=== PATIENT | female | born 1995 | race Caucasian/White ===

== ENCOUNTER 2016-07-07 07:59 | Emergency (ER) | payer OTHER ==
[~2016-07-07] VITALS: Ht 152.4 cm; Wt 87.1 kg
[~2016-07-07 07:59] MED LIST: FLAGYL500 MG PO; IBUPROFEN800 MG PO; MOTRIN800 MG PO; PRENA1 CHEW TA1.4 MG PO; ZANTAC150 MG PO; ZOFRAN ODT8 MG PO
[2016-07-07 09:05] LABS: ADD MIUA? YES; BILIRUBIN NEGATIVE; BLOOD NEGATIVE; COLOR YELLOW ((YELLOW)); GLUCOSE (STRIP) NEGATIVE; KETONES NEGATIVE; LEUKOCYTES NEGATIVE; NITRITE NEGATIVE; PROTEIN (STRIP) NEGATIVE; SPECIFIC GRAVITY 1.023 (1.000-1.030); UROBILINOGEN 0.2 MG/DL (0.2-1.0)
[2016-07-07 09:05] LABS: HEMATOCRIT 40.5 % (36.0-46.0); MCH 28.8 PG (29.0-34.0); MCHC 34.8 G/DL (30.0-36.0); MCV 82.8 FL (83-99); MEAN PLAT.VOLUME 9.2 uM^3 (9.5-12.4); PLATELET COUNT 342 K/uL (156-360); RBC DIS.WIDTH-CV 12.8 % (11.8-14.6); RED BLOOD COUNT 4.89 M/uL (3.80-5.20); WHITE BLOOD COUNT 14.4 K/uL (4.1-10.2)
[2016-07-07 09:08] LABS: BACTERIA RARE /HPF; EPITHELIAL CELLS RARE /HPF; MUCUS TRACE /LPF; RED BLOOD CELLS 0-5 /HPF (0-5); WHITE BLOOD CELLS 0-5 /HPF (0-5)
[2016-07-07 09:14] LABS: CHLORIDE 108 mEq/L (99-109); POTASSIUM 3.8 mEq/L (3.7-5.4); SODIUM 140 mEq/L (136-147)
[2016-07-07 09:16] LABS: GLUCOSE 103 mg/dL (70-99)
[2016-07-07 09:17] LABS: ANION GAP 11 MEQ/L (2-14)
[2016-07-07 09:20] LABS: GFR ESTIMATE (CALCULATED) > 59 mL/min/
[2016-07-07 09:21] LABS: UREA NITROGEN (BUN) 16 mg/dL (9-23)
[2016-07-07] MEDS ORDERED: ZOFRAN ODT4 MG PO (09:35)
[2016-07-07 09:43] VITALS: BP 101/66
== END 2016-07-07 09:44 | disposition home or self-care (01) ==
LOC: EME 07:59
PROVIDERS: Nurse Practitioner Family
DX: R11.2 Nausea with vomiting, unspecified (principal); Z88.7 Allergy status to serum and vaccine
CPT/HCPCS: 80048; 81003; 85027; 99281; 99285; J2405; J7030

== ENCOUNTER 2016-11-09 11:15 | Inpatient (IN) | payer OTHER ==
[~2016-11-09] VITALS: Ht 152.4 cm; Wt 85.3 kg
[~2016-11-09 11:15] MED LIST changes: +ZOFRAN ODT4 MG PO
[2016-11-09 11:47] LABS: ADD MIUA? YES; BILIRUBIN NEGATIVE; BLOOD NEGATIVE; COLOR STRAW ((YELLOW)); GLUCOSE (STRIP) NEGATIVE; KETONES NEGATIVE; LEUKOCYTES TRACE; NITRITE NEGATIVE; PROTEIN (STRIP) NEGATIVE; SPECIFIC GRAVITY 1.009 (1.000-1.030); UROBILINOGEN 0.2 MG/DL (0.2-1.0)
[2016-11-09 11:49] LABS: BACTERIA RARE /HPF; EPITHELIAL CELLS RARE /HPF; MUCUS NONE SEEN /LPF; RED BLOOD CELLS 0-5 /HPF (0-5); WHITE BLOOD CELLS 0-5 /HPF (0-5)
[2016-11-09 12:06] LABS: ADD MEDTOX COMMENT Y; AMPHETAMINE NEGATIVE (500 ng/mL); BARBITURATES NEGATIVE (200 ng/mL); BENZODIAZEPINES NEGATIVE (150 ng/mL); COCAINE NEGATIVE (150 ng/mL); INTERNAL CONTROLS VALID? YES; METHADONE NEGATIVE (200 ng/mL); METHAMPHETAMINE NEGATIVE (500 ng/mL); OPIATES (MORPHINE) NEGATIVE (100 ng/mL); OXYCODONE NEGATIVE (100 ng/mL); PHENCYCLIDINE NEGATIVE (25 ng/mL); PROPOXYPHENE NEGATIVE (300 ng/mL); THC CANNABINOIDS PRESUMPTIVE POSITIVE (50 ng/mL); TRICYCLIC ANTIDEPRESSANTS NEGATIVE (300 ng/mL)
[2016-11-09 12:10] LABS: HEMATOCRIT 39.6 % (36.0-46.0); MCH 29.4 PG (29.0-34.0); MCHC 33.8 G/DL (30.0-36.0); MCV 86.8 FL (83-99); MEAN PLAT.VOLUME 9.1 uM^3 (9.5-12.4); PLATELET COUNT 338 K/uL (156-360); RBC DIS.WIDTH-CV 12.5 % (11.8-14.6); RBC DIS.WIDTH-SD 39.8 % (39-53); RED BLOOD COUNT 4.56 M/uL (3.80-5.20); WHITE BLOOD COUNT 15.9 K/uL (4.1-10.2)
[2016-11-09 12:24] LABS: CHLORIDE 113 mEq/L (99-109); POTASSIUM 3.6 mEq/L (3.7-5.4); SODIUM 143 mEq/L (136-147)
[2016-11-09 12:26] LABS: GLUCOSE 105 mg/dL (70-99)
[2016-11-09 12:27] LABS: ANION GAP 11 MEQ/L (2-14)
[2016-11-09 12:28] LABS: TOTAL BILIRUBIN 0.4 mg/dL (0.0-1.0)
[2016-11-09 12:29] LABS: SERUM ETHYL ALCOHOL < 10 mg/dL
[2016-11-09 12:30] LABS: GFR ESTIMATE (CALCULATED) > 59 mL/min/
[2016-11-09 12:31] LABS: ALKALINE PHOSPHATASE 63 IU/L (3-129)
[2016-11-09 12:32] LABS: UREA NITROGEN (BUN) 15 mg/dL (9-23)
[2016-11-09 12:33] LABS: SALICYLATE < 5.0 MG/DL (15-30)
[2016-11-09 12:40] LABS: QUANTITATIVE HCG < 4.0 MIU/ML
[2016-11-09] MEDS ORDERED: ESCITALOPRAM OX10 MG PO (15:57)
[2016-11-09] MEDS ORDERED: SPRINTEC1 EACH PO (15:57)
[2016-11-09 18:28] VITALS: BP 128/94
[2016-11-09 18:38] VITALS: BP 128/94
[2016-11-10 08:11] VITALS: BP 130/71
[2016-11-10 15:26] VITALS: BP 120/72
[2016-11-11 07:27] VITALS: BP 105/61
[2016-11-11 15:24] VITALS: BP 117/59
[2016-11-12 07:50] VITALS: BP 127/63
[2016-11-12 16:13] VITALS: BP 150/95
[2016-11-13 07:31] VITALS: BP 117/56
[2016-11-13 15:19] VITALS: BP 124/70
[2016-11-14 07:57] VITALS: BP 113/72
[2016-11-14] MEDS ORDERED: PRAZOSIN HCL2 MG PO (09:13)
[2016-11-14] MEDS ORDERED: SERTRALINE HCL100 MG PO (09:13)
== END 2016-11-14 11:35 | disposition home or self-care (01) | DRG 885 ==
LOC: EME 11:15 → EDOF 15:05 → 1WEST 15:05
PROVIDERS: Emergency Medicine
DX: F33.2 Major depressive disorder, recurrent severe without psychotic features (principal); F12.10 Cannabis abuse, uncomplicated; F43.12 Post-traumatic stress disorder, chronic; T43.221D Poisoning by selective serotonin reuptake inhibitors, accidental (unintentional), subsequent encounter
CPT/HCPCS: 80053; 81003; 84702; 84999; 85027; 90837; 97150 GO; 97165 GO; 99281; 99284; G0480; Q0177

== ENCOUNTER 2017-07-06 18:12 | Outpatient (CLI) | payer OTHER ==
[~2017-07-06] VITALS: Ht 152.4 cm; Wt 83.0 kg
[~2017-07-06 18:12] MED LIST changes: +ESCITALOPRAM OX10 MG PO; +PRAZOSIN HCL2 MG PO; +SERTRALINE HCL100 MG PO; +SPRINTEC1 EACH PO
[2017-07-06 18:33] VITALS: BP 120/75
[2017-07-06 19:53] LABS: APPEARANCE CLEAR ((CLEAR)); BILIRUBIN NEGATIVE; BLOOD NEGATIVE; COLOR STRAW ((YELLOW)); GLUCOSE (STRIP) NEGATIVE; KETONES 5; LEUKOCYTES NEGATIVE; NITRITE NEGATIVE; PROTEIN (STRIP) NEGATIVE; SPECIFIC GRAVITY 1.009 (1.000-1.030); UCUL ADDED? NO; UROBILINOGEN 0.2 MG/DL (0.2-1.0)
[2017-07-06 20:23] LABS: AMPHETAMINE NEGATIVE (500 ng/mL); BARBITURATES NEGATIVE (200 ng/mL); BENZODIAZEPINES NEGATIVE (150 ng/mL); BUPRENORPHINE NEGATIVE (10 ng/mL); COCAINE NEGATIVE (150 ng/mL); METHADONE NEGATIVE (200 ng/mL); METHAMPHETAMINE NEGATIVE (500 ng/mL); OPIATES (MORPHINE) NEGATIVE (100 ng/mL); OXYCODONE NEGATIVE (100 ng/mL); PHENCYCLIDINE NEGATIVE (25 ng/mL); PROPOXYPHENE NEGATIVE (300 ng/mL); THC CANNABINOIDS NEGATIVE (50 ng/mL); TRICYCLIC ANTIDEPRESSANTS NEGATIVE (300 ng/mL)
== END 2017-07-06 21:15 | disposition home or self-care (01) ==
LOC: LDRP-OP 18:12 → 2WEST 18:16
PROVIDERS: Advanced Practice Midwife
DX: O60.03 Preterm labor without delivery, third trimester (principal); Z3A.33 33 weeks gestation of pregnancy
CPT/HCPCS: 59025; 81003; 82731; G0378; J7120

== ENCOUNTER 2017-08-20 11:49 | Outpatient (CLI) | payer OTHER ==
[~2017-08-20] VITALS: Ht 152.4 cm; Wt 86.0 kg
[2017-08-20 12:02] VITALS: BP 122/80
== END 2017-08-20 13:27 | disposition home or self-care (01) ==
LOC: LDRP-OP → 2WEST 11:50 → LDRP-OP 21:45
DX: O47.1 False labor at or after 37 completed weeks of gestation (principal); Z3A.39 39 weeks gestation of pregnancy
CPT/HCPCS: 59025; G0378

== ENCOUNTER 2017-08-22 02:20 | Inpatient (IN) | payer OTHER ==
[~2017-08-22] VITALS: Ht 152.4 cm; Wt 86.8 kg
[2017-08-22] VITALS (19 sets, daily range): BP systolic 93–135; BP diastolic 50–93
[2017-08-22 05:11] LABS: AMPHETAMINE NEGATIVE (500 ng/mL); BARBITURATES NEGATIVE (200 ng/mL); BENZODIAZEPINES NEGATIVE (150 ng/mL); BUPRENORPHINE NEGATIVE (10 ng/mL); COCAINE NEGATIVE (150 ng/mL); METHADONE NEGATIVE (200 ng/mL); METHAMPHETAMINE NEGATIVE (500 ng/mL); OPIATES (MORPHINE) NEGATIVE (100 ng/mL); OXYCODONE NEGATIVE (100 ng/mL); PHENCYCLIDINE NEGATIVE (25 ng/mL); PROPOXYPHENE NEGATIVE (300 ng/mL); THC CANNABINOIDS NEGATIVE (50 ng/mL); TRICYCLIC ANTIDEPRESSANTS NEGATIVE (300 ng/mL)
[2017-08-22 05:18] LABS: BASOPHIL (%) 0.2 % (0-1); EOSINOPHIL (%) 0.8 % (0-5); EOSINOPHIL COUNT 0.1 K/uL (0-0.3); HEMATOCRIT 32.5 % (36.0-46.0); HEMOGLOBIN 10.8 G/DL (11.9-15.5); IMMATURE GRANULOCYTE (%) 0.3 % (0.0-0.7); LYMPHOCYTE COUNT 3.5 K/uL (1.0-2.8); MCH 29.9 PG (29.0-34.0); MCHC 33.2 G/DL (30.0-36.0); MONOCYTE (%) 5.3 % (3-12); MONOCYTE COUNT 0.7 K/uL (0-0.8); NEUTROPHIL (%) 65.4 % (45-76); NEUTROPHIL COUNT 8.1 K/uL (1.8-6.4); PLATELET COUNT 244 K/uL (156-360); RBC DIS.WIDTH-CV 12.7 % (11.8-14.6); RBC DIS.WIDTH-SD 41.7 % (39-53); RED BLOOD COUNT 3.61 M/uL (3.80-5.20); WHITE BLOOD COUNT 12.3 K/uL (4.1-10.2)
[2017-08-23 07:22] VITALS: BP 137/94
[2017-08-23 07:28] LABS: BASOPHIL (%) 0.2 % (0-1); EOSINOPHIL (%) 0.7 % (0-5); EOSINOPHIL COUNT 0.1 K/uL (0-0.3); HEMOGLOBIN 10.9 G/DL (11.9-15.5); IMMATURE GRANULOCYTE (%) 0.4 % (0.0-0.7); LYMPHOCYTE (%) 16.2 % (15-42); LYMPHOCYTE COUNT 2.5 K/uL (1.0-2.8); MCH 30.5 PG (29.0-34.0); MCHC 34.1 G/DL (30.0-36.0); MCV 89.6 FL (83-99); MONOCYTE (%) 5.9 % (3-12); MONOCYTE COUNT 0.9 K/uL (0-0.8); NEUTROPHIL (%) 76.6 % (45-76); NEUTROPHIL COUNT 11.6 K/uL (1.8-6.4); PLATELET COUNT 213 K/uL (156-360); RBC DIS.WIDTH-CV 12.8 % (11.8-14.6); RBC DIS.WIDTH-SD 41.8 % (39-53); RED BLOOD COUNT 3.57 M/uL (3.80-5.20); WHITE BLOOD COUNT 15.2 K/uL (4.1-10.2)
[2017-08-23 09:32] VITALS: BP 111/68
[2017-08-23] MEDS ORDERED: IBUPROFEN800 MG PO (09:40)
[2017-08-23 11:16] VITALS: BP 121/66
== END 2017-08-23 14:22 | disposition home or self-care (01) | DRG 775 ==
LOC: LDRP-OP 02:20 → 2WEST 02:21 → LDRP-OP 09-18 13:51
PROVIDERS: Advanced Practice Midwife
PROC: 3E0R3BZ Introduction of Anesthetic Agent into Spinal Canal, Percutaneous Approach (ICD-10-PCS; principal; 2017-08-22)
PROC: 00HU33Z Insertion of Infusion Device into Spinal Canal, Percutaneous Approach (ICD-10-PCS; principal; 2017-08-22)
PROC: 10E0XZZ Delivery of Products of Conception, External Approach (ICD-10-PCS; principal; 2017-08-22)
PROC: 3E033VJ Introduction of Other Hormone into Peripheral Vein, Percutaneous Approach (ICD-10-PCS; principal; 2017-08-22)
DX: O42.02 Full-term premature rupture of membranes, onset of labor within 24 hours of rupture (principal); O69.1XX0 Labor and delivery complicated by cord around neck, with compression, not applicable or unspecified; Z3A.39 39 weeks gestation of pregnancy; Z37.0 Single live birth; R53.82 Chronic fatigue, unspecified; O99.214 Obesity complicating childbirth; E66.9 Obesity, unspecified; Z68.37 Body mass index [BMI] 37.0-37.9, adult; Z91.5 Personal history of self-harm
CPT/HCPCS: 59025; 85025; C1755; G0378; J0595; J3010; J7120

== ENCOUNTER 2017-12-14 12:56 | Emergency (ER) | payer SELFPAY ==
[~2017-12-14] VITALS: Ht 152.4 cm; Wt 81.6 kg
[2017-12-14 14:05] LABS: HEMATOCRIT 35.7 % (36.0-46.0); HEMOGLOBIN 12.2 G/DL (11.9-15.5); MCH 28.7 PG (29.0-34.0); MCHC 34.2 G/DL (30.0-36.0); PLATELET COUNT 334 K/uL (156-360); RBC DIS.WIDTH-SD 39.4 % (39-53); RED BLOOD COUNT 4.25 M/uL (3.80-5.20); WHITE BLOOD COUNT 17.1 K/uL (4.1-10.2)
[2017-12-14 14:10] LABS: APPEARANCE SL.HAZY ((CLEAR)); BILIRUBIN NEGATIVE; BLOOD LARGE; GLUCOSE (STRIP) NEGATIVE; KETONES NEGATIVE; LEUKOCYTES SMALL; NITRITE NEGATIVE; PROTEIN (STRIP) 100; SPECIFIC GRAVITY 1.006 (1.000-1.030); UROBILINOGEN 0.2 MG/DL (0.2-1.0)
[2017-12-14 14:11] LABS: COLOR BLOODY ((YELLOW))
[2017-12-14 14:16] LABS: ALBUMIN 4.3 g/dL (3.2-4.8); CHLORIDE 110 mEq/L (99-109); POTASSIUM 3.9 mEq/L (3.7-5.4); SODIUM 141 mEq/L (136-147)
[2017-12-14 14:18] LABS: GLUCOSE 134 mg/dL (70-99); TOTAL PROTEIN 7.2 g/dL (6.4-8.3)
[2017-12-14 14:20] LABS: TOTAL BILIRUBIN 0.3 mg/dL (0.0-1.0)
[2017-12-14 14:22] LABS: ALKALINE PHOSPHATASE 80 IU/L (3-129); CREATININE 0.9 mg/dL (0.6-1.3); GFR ESTIMATE (CALCULATED) > 59 mL/min/
[2017-12-14 14:23] LABS: UREA NITROGEN (BUN) 12 mg/dL (9-23)
[2017-12-14 14:24] LABS: AST (GOT) 17 IU/L (2-34)
[2017-12-14 14:25] LABS: ALT (GPT) 14 IU/L (3-49)
[2017-12-14 14:30] LABS: BACTERIA 1+ /HPF; EPITHELIAL CELLS RARE /HPF; MUCUS RARE /LPF; RED BLOOD CELLS TNTC /HPF (0-5); UCUL ADDED? YES
[2017-12-14 14:31] LABS: QUANTITATIVE HCG < 4.0 MIU/ML
[2017-12-14] MEDS ORDERED: KEFLEX500 MG PO (16:04)
[2017-12-14] MEDS ORDERED: ZOFRAN4 MG PO (16:04)
[2017-12-14] MEDS ORDERED: MOTRIN800 MG PO (16:04)
[2017-12-14 17:05] VITALS: BP 120/77
== END 2017-12-14 17:05 | disposition home or self-care (01) ==
LOC: EME 12:56
DX: N39.0 Urinary tract infection, site not specified (principal); N83.202 Unspecified ovarian cyst, left side; F32.9 Major depressive disorder, single episode, unspecified; F41.9 Anxiety disorder, unspecified; F17.200 Nicotine dependence, unspecified, uncomplicated; Z88.7 Allergy status to serum and vaccine
CPT/HCPCS: 76856; 80053; 81003; 84702; 85027; 87086; 99281; 99285